=== PATIENT | male | born 1985 | race Caucasian/White ===

== ENCOUNTER 2020-12-11 15:05 | Outpatient (CLI) | payer BC, SELFPAY ==
--- NOTE | ~2020-12-11 | XR_ITS ---
XR chest 2V DATE: 12/11/2020 15:23 INDICATION: Sneezed. Left-sided chest and rib pain TECHNIQUE: PA and lateral views COMPARISON: 04/17/2018 2 view chest FINDINGS: There is mild infiltrate and/or atelectasis at the lung bases. The lungs otherwise appear c lear. No pleural effusion or pulmonary vascular congestion or pneumothorax. Normal heart size. No hilar or mediastinal enlargement. No detectable displaced rib fracture is noted on this limited examination of the ribs. IMPRESSION: Mild bibasilar infiltrate and/or atelectasis Reviewed, dictated and finalized at location [facility].
--- NOTE | ~2020-12-11 | XR_ITS ---
XR_RIBSBI_CR DATE: 12/11/2020 15:23 INDICATION: Patient sneezed. Left-sided rib pain, chest pain. TECHNIQUE: 3 views of right ribs. 3 views of left ribs. COMPARISON: None FINDINGS: There is a mildly displaced acute posterolateral left eighth rib fracture. No other rib fracture is detected. No evidence of pneumothorax. IMPRESSION: Mildly displaced acute posterior lateral left eighth rib fracture Reviewed, dictated and finalized at [facility]. Reviewed, dictated and finalized at location [facility].
== END 2020-12-11 15:06 | disposition home or self-care (01) ==
LOC: ANHBWCIMG 15:07
PROVIDERS: PCP Family Medicine; Visit Provider Family Medicine
DX: R07.81 Pleurodynia (principal); S22.32XA Fracture of one rib, left side, initial encounter for closed fracture; R91.8 Other nonspecific abnormal finding of lung field
CPT/HCPCS: 71046; 71110

== ENCOUNTER 2023-03-18 11:47 | Outpatient (CLI) | payer BC, SELFPAY ==
[2023-03-18 18:58] LABS: Basophils Absolute Auto 0.1 K/mm3 (0.0-0.1); Eosinophils Absolute Auto 0.1 K/mm3 (0-0.3); Eosinophils Percent Auto 2.1 % (0-4.4); Hematocrit 46.1 % (42.0-52.0); Hemoglobin 14.6 g/dL (14.0-18.0); Immature Granulocyte Absolute 0.02 K/mm3 (0.00-0.031); Immature Granulocyte Percent A 0.3 % (0-0.5); Lymphocytes Absolute Auto 1.67 K/mm3 (0.9-3.2); Lymphocytes Percent Auto 26.7 % (18.3-44.2); Mean Corpuscular HGB Conc 31.7 g/dl (32-36); Mean Corpuscular Hemoglobin 28.6 pg (26-34); Mean Corpuscular Volume 90.4 fl (80-100); Mean Platelet Volume 10.1 fl (7.4-10.4); Monocytes Absolute Auto 0.5 K/mm3 (0.1-0.6); Monocytes Percent Auto 8.6 % (2.6-8.5); Neutrophils Absolute Auto 3.8 K/mm3 (1.3-6.7); Neutrophils Percent Auto 61.3 % (45.5-73.1); Platelet Count Result 268 k/mm3 (150-375); Red Cell Distribution Width 12.3 % (11.5-14.5); White Blood Count 6.3 K/mm3 (4.5-10.0)
[2023-03-18 19:42] LABS: Alanine Aminotransferase 22 U/L (6-50); Albumin Level 4.8 g/dL (3.5-5.1); Alkaline Phosphatase 89 U/L (38-126); Anion Gap 8 mmol/L (8-16); Aspartate Amino Transferase 36 U/L (17-59); Bilirubin,Total 1.7 mg/dL (0.2-1.3); Blood Urea Nitrogen 11 mg/dL (9-20); Calcium 10.6 mg/dL (8.4-10.2); Carbon Dioxide 28 mmol/L (22-30); Chloride 100 mmol/L (98-107); Cholesterol 241 mg/dL (0-200); Estimated Glomerular Filt Rate > 60; Glucose 95 mg/dL (65-110); HDL Direct 33 mg/dL; Magnesium 2.2 mg/dL (1.6-2.3); Potassium 4.7 mmol/L (3.4-5.0); Sodium 136 mmol/L (137-145); Triglycerides 178 mg/dL (<150)
[2023-03-18 19:52] LABS: Vitamin D 25 Hydroxy 24.9 ng/mL
[2023-03-18 19:53] LABS: LDL Cholesterol Direct 151 mg/dL
[2023-03-18 20:54] LABS: Folic Acid 10.9 ng/mL (2.76->20)
== END 2023-03-18 11:48 | disposition home or self-care (01) ==
PROVIDERS: PCP Nurse Practitioner Adult Health; Visit Provider Nurse Practitioner Adult Health
DX: R20.2 Paresthesia of skin (principal); I10 Essential (primary) hypertension; E55.9 Vitamin D deficiency, unspecified
CPT/HCPCS: 36415; 80053; 80061; 82306; 82607; 82746; 83735; 84443; 85025

== ENCOUNTER 2024-01-12 10:14 | Emergency (ER) | payer BC, SELFPAY ==
[2024-01-12 10:24] VITALS: BP 157/108; PULSE 106; RESP 20; TEMP 36.7; O2SAT 98
--- NOTE | 2024-01-12 10:56 | ED.URI ---
HPI - URI/Sore Throat General Chief Complaint: Upper Respiratory Infection Stated Complaint: Had covid last week/still feels awful Time Seen by Provider: 01/12/24 10:56 Source: patient and RN notes reviewed Mode of arrival: ambulatory Limitations: no limitations History of Present Illness HPI Narrative: 38-year-old male presented for complaint of nausea, vomiting, and diarrhea intermittently for about 1 week. He was diagnosed with COVID 7 days ago. He endorses headache has persisted, along with the GI symptoms. States he had a normal BM yesterday and has been able to tolerate fluids . Denies abdominal pain or urinary complaints. denies cough, sob or wheezing. Requesting work note. Related Data Allergies Allergy/AdvReac Type Severity Reaction Status Date / Time Sulfa (Sulfonamide Allergy Unknown Nausea Verified 01/12/24 10:20 Antibiotics) cefmenoxime Allergy Vomiting Verified 01/12/24 10:20 Review of Systems Review of Systems: CONSTITUTIONAL: Denies body aches, fever, chills ENT: Denies rhinorrhea, congestion CARDIOVASCULAR: Denies chest pain, palpitations, or edema. RESPIRATORY: Denies cough or dyspnea. GASTROINTESTINAL: Endorses nausea, vomiting, diarrhea. Denies abdominal pain, hematochezia, melena, hematemesis SKIN: Denies rash, itching, or wounds. MUSCULOSKELETAL: Denies back pain, joint pain, or myalgia. NEUROLOGIC: Denies headache, numbness, tingling, or weakness. All systems reviewed & are unremarkable except as noted in HPI and below PMFSH Past Medical History Medical History (Updated 01/12/24 @ 12:28 by Shara Wilson APRN) Hypertension, essential Family History Family History Father Hypertension Grandparent Family history of lung cancer Family history of atrial fibrillation Family history of rheumatoid arthritis Family history of cardiovascular disease Family history of malignant neoplasm of breast in first degree relative Social History Social History Years smoked: 20 Smoking status: Former smoker Tobacco type: e-cigarettes/vaping Second hand tobacco smoke exposure: No Alcohol intake: current Drinks per week: 2 Substance use: unknown Lack of Transportation: No Lack of Food: Never True Current Housing: I Have Housing Concerned About Future Housing: No Difficulty Paying Gas/Electric Bills: No Difficulty Paying for Meds: No Currently Unemployed: No Education: Associate Degree Difficulty w/ Childcare or Family Care: No Gender identity (if verbalized by the patient): Male Comments At time of signature, I have reviewed and agree with nursing past medical, surgical, social and family history unless otherwise noted. Please see nursing chart for further information. There is no relevant family history pertinent to the presenting complaint Exam Narrative: GENERAL: Well-appearing, and in no acute distress. ENT: Mucous membranes pink and moist. CHEST: No respiratory distress. Clear to auscultation. HEART: Regular rate and rhythm. No murmur appreciated. Normal peripheral pulses. ABDOMEN: abd soft, nondistended, normal active bowel sounds. Nontender abdomen; No guarding, rebound tenderness, asymmetry EXTREMITIES: Normal range of motion. No edema. SKIN: Warm, dry Capillary refill normal. Normal skin turgor. NEURO: No focal deficits. Alert and oriented x3. Course Course Emergency Course: Patient is aware of diagnosis, understands and agrees to treatment plan. Anticipatory guidance given. Patient agrees to follow-up as directed and is aware of reasons to seek care at the emergency department. Portions of this record may have been created with voice recognition software Level of Care: Express Care Visit Vital Signs Vital signs: Vital Signs Temperature 98.1 F 01/12/24 10:24 Pulse Rate 106 H 01/12/24 10:24 Respirator
== END 2024-01-12 11:05 | disposition home or self-care (01) ==
PROVIDERS: Emergency Provider Nurse Practitioner Family; PCP Family Medicine
DX: R11.2 Nausea with vomiting, unspecified (principal); R19.7 Diarrhea, unspecified; I10 Essential (primary) hypertension; Z86.16 Personal history of COVID-19
CPT/HCPCS: 99211; G0463